=== PATIENT | female | born 1960 | race Caucasian/White ===

== ENCOUNTER 2020-08-24 08:35 | Outpatient (REF) | payer OTHER, SELFPAY ==
[2020-08-24 11:02] LABS: MANUAL DIFF FLAG NO
[2020-08-24 11:09] LABS: Basophils Percent Auto 0.6 % (0-2); Eosinophils Absolute Auto 0.2 X10*3/uL (0.0-0.4); Eosinophils Percent Auto 2.4 % (0-4); Hematocrit 43.2 % (37-47); Hemoglobin 14.3 g/dl (12.0-16.0); Imm Gran Abs Auto 0.02 X10*3/uL (0.00-0.03); Imm Gran Pct Auto 0.3 % (0.0-0.4); Lymphocytes Absolute Auto 1.9 X10*3/uL (1.2-4.9); Lymphocytes Percent Auto 30.4 % (20-40); Mean Corpuscular HGB Conc 33.1 g/dl (31.0-35.0); Mean Corpuscular Hemoglobin 30.6 pg (27.0-33.0); Mean Corpuscular Volume 92.5 fL (80-98); Mean Platelet Volume 10.4 fL (9.4-12.3); Monocytes Absolute Auto 0.4 X10*3/uL (0.1-1.2); Neutrophils Absolute Auto 3.7 X10*3/uL (2.0-8.3); Neutrophils Percent Auto 59.3 % (45-73); Platelet Count 295 X10*3/uL (160-400); Red Blood Count 4.67 X10*6/uL (4.20-5.50); Red Cell Distribution Width 13.2 % (11.0-16.0); White Blood Count 6.2 X10*3/uL (4.8-10.8)
[2020-08-24 11:12] LABS: Glucose Urine UA NEG (NEG); Leukocyte Esterase Urine NEG (NEG); Nitrite Urine NEG (NEG); PH 5.5 (5.0-8.0); Specific Gravity - Urine >= 1.030 (1.005-1.025); Urine Blood NEG (NEG); Urine Ketones NEG (NEG); Urine Protein NEG (NEG-TRACE)
[2020-08-24 11:21] LABS: Appearance Urine TURBID; Color Urine YELLOW
[2020-08-24 11:28] LABS: Alanine Aminotransferase 31 U/L (0-31); Albumin Level 4.3 g/dL (3.5-5.0); Alkaline Phosphatase 102 U/L (39-117); Anion Gap 13 (12-20); Aspartate Amino Transferase 22 U/L (5-31); Bilirubin Total 0.6 mg/dL (0.0-1.0); Blood Urea Nitrogen 14 mg/dL (9-16); Calcium 9.4 mg/dL (8.4-10.2); Carbon Dioxide 28 mmol/L (22-29); Chloride 106 mmol/L (96-108); Cholesterol 240 mg/dL; Estimated Glomerular Filt Rate > 60; Glucose Fasting 88 mg/dL (60-99); HDL Cholesterol 80 mg/dL; LDL Cholesterol Calculated 140 mg/dl; Potassium 4.8 mmol/l (3.3-5.1); Sodium 142 mmol/L (135-145); Total Protein 6.8 g/dL (6.5-8.0); Triglycerides 100 mg/dL
[2020-08-24 11:50] LABS: Thyroid Stimulating Hormone 1.56 mIU/mL (0.32-4.0)
[2020-08-28 14:56] LABS: Vitamin D 25-OH, D2 <4 ng/mL; Vitamin D 25-OH, D3 56 ng/mL; Vitamin D 25-OH, Total 56 ng/mL (30-100)
== END 2020-08-24 08:36 | disposition home or self-care (01) ==
LOC: HO.HMGCLDS 08:35
PROVIDERS: PCP Internal Medicine; Visit Provider Internal Medicine
DX: Z00.00 Encounter for general adult medical examination without abnormal findings (principal); Z13.9 Encounter for screening, unspecified; E78.5 Hyperlipidemia, unspecified
CPT/HCPCS: 36415; 80053; 80061; 81003; 82306; 84443; 85025

== ENCOUNTER 2020-09-16 15:56 | Outpatient (REF) | payer OTHER, SELFPAY | END 2020-09-16 15:57 | disposition home or self-care (01) | LOC: HO.LAB 15:56 | PROVIDERS: Visit Provider Nurse Practitioner Family | DX: Z20.828 Contact with and (suspected) exposure to other viral communicable diseases (principal) | CPT/HCPCS: U0003 ==

== ENCOUNTER 2021-06-25 16:37 | Outpatient (REF) | payer OTHER, SELFPAY | END 2021-06-25 16:38 | disposition home or self-care (01) | LOC: HO.LNP 16:37 | PROVIDERS: Visit Provider Hospitalist | DX: Z20.822 Contact with and (suspected) exposure to COVID-19 (principal) | CPT/HCPCS: U0003; U0005 ==

== ENCOUNTER 2021-08-26 09:17 | Outpatient (REF) | payer OTHER, SELFPAY ==
[2021-08-26 11:32] LABS: Appearance Urine TURBID; Color Urine YELLOW; Glucose Urine UA NEG (NEG); Leukocyte Esterase Urine NEG (NEG); Nitrite Urine NEG (NEG); Specific Gravity - Urine 1.025 (1.005-1.025); Urine Blood NEG (NEG); Urine Ketones NEG (NEG); Urine Protein NEG (NEG-TRACE)
[2021-08-26 11:42] LABS: Hematocrit 42.1 % (37-47); Hemoglobin 13.9 g/dl (12.0-16.0); Mean Corpuscular Hemoglobin 30.2 pg (27.0-33.0); Mean Corpuscular Volume 91.5 fL (80-98); Mean Platelet Volume 10.6 fL (9.4-12.3); Platelet Count 300 X10*3/uL (160-400); Red Cell Distribution Width 13.5 % (11.0-16.0); White Blood Count 5.9 X10*3/uL (4.8-10.8)
[2021-08-26 11:50] LABS: Alanine Aminotransferase 28 U/L (0-31); Alkaline Phosphatase 104 U/L (39-117); Anion Gap 13 (12-20); Aspartate Amino Transferase 23 U/L (5-31); Bilirubin Total 0.6 mg/dL (0.0-1.0); Blood Urea Nitrogen 16 mg/dL (9-16); Calcium 9.2 mg/dL (8.4-10.2); Carbon Dioxide 26 mmol/L (22-29); Chloride 107 mmol/L (96-108); Cholesterol 236 mg/dL; Estimated Glomerular Filt Rate > 60; Glucose Fasting 91 mg/dL (60-99); HDL Cholesterol 76 mg/dL; LDL Cholesterol Calculated 150 mg/dl; Potassium 4.6 mmol/L (3.3-5.1); Sodium 141 mmol/L (135-145); Total Protein 6.6 g/dL (6.5-8.0); Triglycerides 50 mg/dL
== END 2021-08-26 09:18 | disposition home or self-care (01) ==
LOC: HO.HMGCLDS 09:17
PROVIDERS: PCP Internal Medicine; Visit Provider Internal Medicine
DX: Z00.00 Encounter for general adult medical examination without abnormal findings (principal); E78.5 Hyperlipidemia, unspecified; R30.0 Dysuria
CPT/HCPCS: 36415; 80053; 80061; 81003; 84443; 85027

== ENCOUNTER 2022-08-29 09:04 | Outpatient (REF) | payer OTHER, SELFPAY ==
[2022-08-29 11:26] LABS: Appearance Urine Clear; Color Urine Yellow; Glucose Urine UA Negative (Negative); Leukocyte Esterase Urine Trace (Negative); Nitrite Urine Negative (Negative); PH 5.5 (5.0-9.0); Specific Gravity - Urine <= 1.005 (1.005-1.025); UMIC TRIGGER UACC YES; Urine Blood Negative (Negative); Urine Ketones Negative (Negative); Urine Protein Negative (Neg-Trace)
[2022-08-29 11:36] LABS: Bacteria Urine None Seen (None Seen); Hyaline Casts Urine 0-2 /LPF (0-2); Squamous Epithelial Cell Urine 0-2 /HPF (0-2); WBC Urine 0-5 /HPF (0-5)
[2022-08-29 12:23] LABS: Cholesterol 228 mg/dL; HDL Cholesterol 68 mg/dL; LDL Cholesterol Calculated 142 mg/dl; Triglycerides 92 mg/dL
[2022-08-29 12:29] LABS: Vitamin D 25-OH Total 76.3 ng/mL (>30)
== END 2022-08-29 09:05 | disposition home or self-care (01) ==
LOC: HO.HMGCLDS 09:04
PROVIDERS: PCP Internal Medicine; Visit Provider Internal Medicine
DX: Z00.00 Encounter for general adult medical examination without abnormal findings (principal); E78.5 Hyperlipidemia, unspecified; E55.9 Vitamin D deficiency, unspecified
CPT/HCPCS: 36415; 80061; 81001; 82306

== ENCOUNTER 2022-09-02 13:38 | Outpatient (REF) | payer OTHER, SELFPAY ==
--- NOTE | ~2022-09-02 | XR_ITS ---
EXAMINATION: XR KNEE AP STANDING CLINICAL INFORMATION: Pain COMPARISON: 11/27/2017 TECHNIQUE: AP bilateral standing view of the knees was obtained. FINDINGS: Right knee: Narrowing of the lateral compartment with osteophytosis. Left knee: Osteophytosis of the lateral compartment. Joint spaces are preserved. XR/XR knee standing BI IMPRESSION: Osteoarthritis of the bilateral knees, right greater than left.
== END 2022-09-02 13:39 | disposition home or self-care (01) ==
LOC: HO.HMGCX 13:38
PROVIDERS: PCP Internal Medicine; Visit Provider Internal Medicine
DX: M25.561 Pain in right knee (principal); M25.562 Pain in left knee
CPT/HCPCS: 73565

== ENCOUNTER → 2022-09-15 11:21 | Outpatient (BNVA) | payer OTHER, SELFPAY | PROVIDERS: PCP Internal Medicine; Visit Provider Orthopaedic Surgery | DX: M17.0 Bilateral primary osteoarthritis of knee (principal); M21.061 Valgus deformity, not elsewhere classified, right knee | CPT/HCPCS: 20610; 99202; J1100 ==

== ENCOUNTER 2022-10-31 08:47 | Outpatient (REF) | payer OTHER, SELFPAY ==
[2022-10-31 13:11] LABS: Cholesterol 243 mg/dL; HDL Cholesterol 72 mg/dL; LDL Cholesterol Calculated 144 mg/dl; Triglycerides 137 mg/dL; Vitamin D 25-OH Total 59.6 ng/mL (>30)
== END 2022-10-31 08:48 | disposition home or self-care (01) ==
LOC: HO.HMGCLDS 08:47
PROVIDERS: PCP Internal Medicine; Visit Provider Internal Medicine
DX: M81.0 Age-related osteoporosis without current pathological fracture (principal); E55.9 Vitamin D deficiency, unspecified
CPT/HCPCS: 36415; 80061; 82306

== ENCOUNTER 2022-11-23 13:00 | Outpatient (RCR) | payer OTHER, SELFPAY ==
--- NOTE | 2022-09-29 14:13 | MHC.PT.EP ---
[facility] [place] Office [place] Office [place] Office [address] Steve Louis [address] [phone] F: [phone] F: [phone] F: [phone] F: [phone] Physical Therapy Plan of Care Date of Evaluation: Date of Surgery: Diagnosis: Bilateral OA of knees, valgus deformity of R knee Assessment: Patient is pleasant 61 y.o. female referred to PT by Dr. Marko Blanco MD with Dx of bilateral OA of knees, R knee valgus deformity. She presents with PT Dx consistent with OA with current impairments include pain, limited ROM, weakness, antalgic gait, difficulty with balance. Her functional limitations include walking long distances, standing prolonged periods of time, reciprocal stair use, squat/bend low surfaces. Skilled PT with address impairments and functional limitations in order to achieve goals. Frequency and Duration: The patient will be seen 2x/week for 4 weeks Short Term Goals: 2 weeks Patient presents with R knee extension AROM -5 degrees to improve gait pattern. Patient demonstrates consistency and independence with HEP to self manage chronic R knee OA sxs. Residential Goals: 4 weeks Patient presents with increased R knee flexion AROM 115 degrees to sit to low surfaces. Patient presents with increased R knee flexion strength 4+/5 to be able to perform reciprocal stairs to basement. Treatment Plan: Modalities to reduce pain, spasms and effusion. Manual therapy to restore motion and function. Therapeutic exercise to improve strength and flexibility. Neuromuscular re-education for posture and balance. Therapeutic activities to return to functional activities of daily living. Electronically signed by: Monique Whitmore, PT, DPT Please sign and return to therapist. Thank you for your referral.
--- NOTE | 2022-11-23 14:19 | MHC.PT.DC ---
[facility] [place] Office [place] Office [place] Office [address] 140 [facility] [phone] F: [phone] F: [phone] F: [phone] F: [phone] Physical Therapy Discharge Report Diagnosis: Bilateral OA of knees, valgus deformity of R knee Date of Surgery: Date of Evaluation: 09/29/22 Date of Discharge: 11/23/22 Treatments to Date: 10 Cancellations to Date: No Shows to Date: Discharge Status: Improved Function Independent with HEP Discharge Summary: Fawn has been an active participant in her therapy in and out of the clinic she is improved of her pain and function however pain and compensation persists with squatting activities and negotiating stairs and curbs. LEFI outcome measure improved from 19/80 to 33/80. PT and Pt are in agreement with as she is I with her home program and is motivated to continue. Electronically signed by: Ravi Mcclure PT. Please sign and return to therapist. Thank you for your referral.
== END 2022-11-23 14:17 | disposition home or self-care (01) ==
LOC: HO.PTCHIC 13:00
PROVIDERS: PCP Internal Medicine; Visit Provider Orthopaedic Surgery
DX: M17.0 Bilateral primary osteoarthritis of knee (principal); M21.061 Valgus deformity, not elsewhere classified, right knee
CPT/HCPCS: 97110; 97140; 97161

== ENCOUNTER 2023-08-29 08:56 | Outpatient (REF) | payer OTHER, SELFPAY ==
[2023-08-29 11:39] LABS: MANUAL DIFF FLAG NO
[2023-08-29 11:52] LABS: Basophils Absolute Auto 0.1 X10*3/uL (0.0-0.2); Basophils Percent Auto 0.9 % (0-2); Eosinophils Absolute Auto 0.4 X10*3/uL (0.0-0.4); Eosinophils Percent Auto 6.7 % (0-4); Hematocrit 43.8 % (37.0-47.0); Hemoglobin 14.4 g/dl (12.0-16.0); Imm Gran Abs Auto 0.01 X10*3/uL (0.00-0.03); Imm Gran Pct Auto 0.2 % (0.0-0.4); Lymphocytes Absolute Auto 1.9 X10*3/uL (1.2-4.9); Lymphocytes Percent Auto 32.2 % (20-40); Mean Corpuscular HGB Conc 32.9 g/dl (31.0-35.0); Mean Corpuscular Hemoglobin 30.5 pg (27.0-33.0); Mean Corpuscular Volume 92.8 fL (80.0-98.0); Mean Platelet Volume 10.6 fL (9.4-12.3); Monocytes Absolute Auto 0.4 X10*3/uL (0.1-1.2); Monocytes Percent Auto 7.4 % (2-11); Neutrophils Percent Auto 52.6 % (45-73); Platelet Count 327 X10*3/uL (160-400); Red Blood Count 4.72 X10*6/uL (4.20-5.50); Red Cell Distribution Width 13.5 % (11.0-16.0); White Blood Count 5.8 X10*3/uL (4.8-10.8)
[2023-08-29 12:05] LABS: Appearance Urine Clear; Color Urine Yellow; Glucose Urine UA Negative (Negative); Leukocyte Esterase Urine Trace (Negative); Nitrite Urine Negative (Negative); UMIC TRIGGER UACC YES; Urine Blood Negative (Negative); Urine Ketones Negative (Negative); Urine Protein Negative (Neg-Trace)
[2023-08-29 12:10] LABS: Bacteria Urine None Seen (None Seen); Hyaline Casts Urine 0-2 /LPF (0-2); RBC Urine 0-2 /HPF (0-2); Squamous Epithelial Cell Urine 0-2 /HPF (0-2); WBC Urine 0-5 /HPF (0-5)
[2023-08-29 12:29] LABS: Alanine Aminotransferase 23 U/L (0-31); Albumin Level 4.1 g/dL (3.5-5.0); Alkaline Phosphatase 107 U/L (39-117); Anion Gap 14 (12-20); Aspartate Amino Transferase 19 U/L (5-31); Bilirubin Total 0.6 mg/dL (0.0-1.0); Blood Urea Nitrogen 16 mg/dL (9-16); Calcium 9.8 mg/dL (8.4-10.2); Carbon Dioxide 27 mmol/L (22-29); Chloride 106 mmol/L (96-108); Cholesterol 251 mg/dL (<200); Estimated Glomerular Filt Rate > 60; Glucose Fasting 81 mg/dL (60-99); HDL Cholesterol 77 mg/dL (>40); LDL Cholesterol Calculated 154 mg/dL (<100); Potassium 4.6 mmol/L (3.3-5.1); Sodium 142 mmol/L (135-145); TSH reflex Free T4 1.81 uIU/mL (0.32-4.0); Total Protein 7.3 g/dL (6.5-8.0); Triglycerides 103 mg/dL (<150); Vitamin D 25-OH Total 82.5 ng/mL (>30)
== END 2023-08-29 08:57 | disposition home or self-care (01) ==
LOC: HO.HMGCLDS 08:56
PROVIDERS: PCP Internal Medicine; Visit Provider Internal Medicine
DX: Z00.00 Encounter for general adult medical examination without abnormal findings (principal); E55.9 Vitamin D deficiency, unspecified; M81.0 Age-related osteoporosis without current pathological fracture; E78.5 Hyperlipidemia, unspecified
CPT/HCPCS: 36415; 80053; 80061; 81001; 81003; 82306; 84443; 85025

== ENCOUNTER 2023-09-04 08:25 | Outpatient (AMB) | payer OTHER, SELFPAY ==
[2023-09-04 08:37] VITALS: BP 128/80; PULSE 69; O2SAT 98; BMI 39.5
--- NOTE | 2023-09-04 08:37 | MHC.PC.OV ---
Vital Signs 09/04/23 08:37 Height 5 ft 4 in Weight 230 lb BMI 39.5 BP 128/80 Blood Pressure Location Lt brachial Position Sitting Pulse 69 Pulse Source Pulse Oximeter Pulse Oximetry (%) 98 Oxygen Delivery Method Room Air Intake Visit Reasons: Annual PE Intake Note: Pt is here today for PE. Pt states that she has been having some redness, blister on her toes in her L foot. Allergies No Known Allergies [No Known Allergies*] Allergy (Verified 09/04/23 08:41) Medication List - Last Reconciled 09/04/23 by Amparo Rivera MD ascorbic acid (vitamin C) 1 g PO Q6H mv,Ca,min-folic acid-vit K1 400-20 mcg (One-A-Day Women's 50 Plus) 1 tab PO DAILY naproxen sodium (Aleve) 220 mg PO Q12H PRN omega 8-nup-ccl-fish oil 1,000 mg (120 mg-180 mg) (Fish Oil) 1 cap PO DAILY valacyclovir 1,000 mg PO BID Tobacco use date assessed: 09/04/23 Dental Screening Dental Screen Date: 09/04/23 Did you have a dental visit in the last 12 months?: Yes Did you have a dental problem in the last 6 months where you did not have access to dental care?: No Was dental information given to patient?: Patient has dentist HPI Annual PE HPI Details Pt presents for PE. She complains of left middle toe all open sore for 1 week. She has been using Neosporin but developed an itchy rash. Patient denies fever chills. Patient complains of chronic right knee pain due to advanced osteoarthritis. She had a cortisone injection last year which was helpful. Patient is concerned about her weight gain. She has been eating sweets when upset. Patient tried different weight loss programs in the past and was able to lose up to 50 lb. 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 1. Little interest or pleasure in doing things: several days 2. Feeling down, depressed, or hopeless: several days 3. Trouble falling or staying asleep, or sleeping too much: not at all 4. Feeling tired or having little energy: several days 5. Poor appetite or overeating: several days 6. Feeling bad about yourself - or that you are a failure or have let yourself or your family down: not at all 7. Trouble concentrating on things, such as reading the newspaper or watching television: not at all 8. Moving or speaking so slowly that other people could have noticed. Or the opposite - being so fidgety or restless that you have been moving around a lot more than usual: not at all 9. Thoughts that you would be better off or of hurting yourself in some way: not at all Total score: 4 Depression Screening Interpretation: Negative Depression Screening Done: Yes Source: Developed by Drs. Car Emmanuel, Debbie Mcadams, Darshan Brown and colleagues, with an educational issa from [employer]. Thrive Questionnaire Date Thrive assessed: 09/04/23 I am a: Patient What is your living situation today?: I have a steady place to live Within the past 12 months, did the food you bought not last and you didn't have the money to get more?: Never true Within the past 12 months, did you worry whether your food would run out before you got money to buy more?: Never true Do you have trouble paying for medicines?: No Do you have trouble getting transportation to medical appointments?: No Do you have trouble paying your heating and electricity bill?: No Do you have trouble taking care of your child, family member or friend?: No Do you have trouble with day-to-day activities such as bathing, preparing meals, shopping, managing finances, etc.?: No Are you currently unemployed and looking for a job?: No Are you interested in more education?: No Please select the resources that you would like help with: None AUDIT C Alcohol Use Questionnaire (AUDIT-C) 1. How often do you have a drink containing alcohol?: Monthly or less 2. How many drinks containing alcohol do you have on a typical day when you are drinking?: 1 or 2 3. How often do you have six or more drinks on one occasion?: Never Total Score: 1 HAZEL-7 AMB Questionnaire HAZEL-7 Date HAZEL - 7 assessed: 09/04/23 Feeling nervous, anxious, or on edge: 0 = Not at all Not being able to stop or control worryin = Not at all Worrying too much about different things: 0 = Not at all Trouble relaxin = Not at all Being so restless that it is hard to sit still: 0 = Not at all Becoming easily annoyed or irritable: 0 = Not at all Feeling afraid as if something awful might happen: 0 = Not at all Total HAZEL-7 score (0-4 normal; 5-9 mild; 10-14 moderate; 15-21 severe): 0 Source: Developed by Drs. Car Emmanuel, Debbie Mcadams, Darshan Brown and colleagues, with an educational issa from [employer]. Review of Systems Const All systems reviewed & are unremarkable except as noted in HPI and below Reports no additional complaints Eyes Reports no additional complaints ENT Reports no additional complaints Card Reports no additional complaints Resp Reports no additional complaints GI Reports no additional complaints Reports no additional complaints Physical exam (Primary Care) Vital Signs: Last Vital Signs Pulse 69 09/04/23 08:37 BP 128/80 09/04/23 08:37 Pulse Ox 98 09/04/23 08:37 Oxygen Delivery Method Room Air 09/04/23 08:37 BMI result Body Mass Index 39.5 Tobacco/Smoking Status: Tobacco use Status Tobacco use date assessed 09/04/23 09/04/23 08:38 Patient Tobacco Use Status Never used Tobacco 09/04/23 08:38 e-Cigarette/Vaping Use Never Used 09/04/23 08:38 Depression Screening Interpretation: Negative Thrive Assessment: Date of Thrive Assessment Date Thrive assessed 09/02/22 09/04/23 08:38 Const General: no acute distress HENMT Head: Yes normal to inspection Ears: hearing grossly normal bilaterally Face and sinus: Yes normal facial exam Throat: Yes posterior oropharynx normal Eyes General: appearance normal, both eyes and all related structures Neck Neck: Yes no lymphadenopathy and Yes supple Resp Effort & Inspection: normal respiratory effort Auscultation: clear to auscultation bilaterally Cardio Rhythm: regular rhythm Heart sounds: S1 normal heart sound present and S2 normal heart sound present GI Inspection: Yes normal to inspection Percussion: Yes normal to percussion Auscultation: normal bowel sounds Extrem Other: There is a decreased range of motion right knee and arthritic deformity, 3rd L toe ulcer with yellow vesicle, surrounding erythema and swelling Assessment and Plan Assessment & Plan (1) Knee pain, right: Code(s): M25.561 - Pain in right knee Plan: Referred to physical therapy and follow-up with orthopedic surgeon (2) Overweight: Code(s): E66.3 - Overweight Plan: Increasing physical activity decrease in caloric intake discussed with the patient. (3) Annual physical exam: Code(s): Z00.00 - Encounter for general adult medical examination without abnormal findings Plan: Well-balanced diet regular exercise weight loss discussed with the patient. She is up-to-date with the mammogram Pap smear and colonoscopy (4) Hyperlipidemia: Code(s): E78.5 - Hyperlipidemia, unspecified Plan: Low-cholesterol diet increase physical activity weight loss discussed with the patient . follow-up in 6 months with a fasting labs before (5) Toe ulcer: Code(s): L97.509 - Non-pressure chronic ulcer of other part of unspecified foot with unspecified severity Plan: For infected toe ulcer and possible allergic reaction to Neosporin prednisone taper and Augmentin are prescribed. Patient will follow-up as needed Orders: Orders Comprehensive [place]. Panel Fast 6 Months E78.5 - Hyperlipidemia, unspecified, Z00.00 - Encounter for general adult medical examination without abnormal findings Lipid Panel 6 Months E78.5 - Hyperlipidemia, unspecified, Z00.00 - Encounter for general adult medical examination without abnormal findings PT Evaluation and Treatment Today M25.561 - Pain in right knee Medications: New amoxicillin-pot clavulanate 875-125 mg 1 tab PO BID 20 tabs 0RF prednisone 4 TABL qd x 3 days, then 3 tabl qd x3, then 2 tabl x 3 days, then 1 tabl x days 10 mg PO DAILY 30 tabs 0RF Refilled valacyclovir 1,000 mg PO BID 60 tabs 1RF Coding Level of Care Code Est Pt Prev Care 40-64y(37602) Diagnoses Knee pain, right M25.561 Overweight E66.3 Annual physical exam Z00.00 Hyperlipidemia E78.5 Toe ulcer L97.509
== END 2023-09-04 09:28 | disposition home or self-care (01) ==
PROVIDERS: Visit Provider Internal Medicine
DX: Z00.00 Encounter for general adult medical examination without abnormal findings (principal); L97.509 Non-pressure chronic ulcer of other part of unspecified foot with unspecified severity; M25.561 Pain in right knee; E66.3 Overweight; E78.5 Hyperlipidemia, unspecified; Z68.39 Body mass index [BMI] 39.0-39.9, adult; E55.9 Vitamin D deficiency, unspecified
CPT/HCPCS: 99396

== ENCOUNTER 2023-12-19 20:10 | Emergency (ER) | payer OTHER, SELFPAY ==
--- NOTE | ~2023-12-19 | CT_ITS ---
EXAMINATION: CT HEAD WITHOUT CONTRAST CT CERVICAL SPINE WITHOUT CONTRAST CT MAXILLOFACIAL WITHOUT CONTRAST CLINICAL INFORMATION: Fall with loss of consciousness. Contusion/hematoma over right eye. COMPARISON: None. TECHNIQUE: Multidetector volumetric imaging of the head was performed without the administration of intravenous contrast. Images were also obtained with through the cervical spine as well as the facial bones from the frontal sinuses through the mandible. Multiplanar reconstructed images in coronal and sagittal orientations were submitted. This CT examination was performed using dose optimization techniques as appropriate, variously including the following: *Automated exposure control *Adjustment of mA and/or kV according to patient size (this includes techniques or standardized protocols for targeted exams where dose is matched to indication/reason for exam; i.e. extremities or head) *Use of iterative reconstruction technique DOSE: 1432 mGy-cm FINDINGS: HEAD: There is no evidence of acute intracranial hemorrhage or territorial infarction. No abnormal mass-effect or midline shift. No extra-axial fluid collections. Lares to white matter differentiation is well preserved. The ventricles are normal in size and configuration. There is no abnormal attenuation within the brain parenchyma. Calcific atherosclerosis is present within the cavernous segments of the internal carotid arteries. Right periorbital hematoma over the superior and lateral orbital rim. Soft tissues otherwise unremarkable. The calvarium is intact. Hyperostosis frontalis interna. The sinuses and mastoid air cells are clear. MAXILLOFACIAL: The right periorbital hematoma over the superior and lateral orbital rim measures 1.1 cm in thickness . No post septal involvement. Globes are symmetric and unremarkable. No retrobulbar abnormalities. Intraconal and skull fat is normal. Extraocular muscles are unremarkable. The mandible, maxilla, pterygoid plates, nasal bones, zygomatic arches, paranasal sinus gibson, and bony orbits are intact. No acute osseous abnormality within the maxillofacial region. The paranasal sinuses and mastoid air cells remain well-aerated. No significant soft tissue findings. Nasopharynx, oropharynx, and hypopharynx are unremarkable. CERVICAL SPINE: Vertebral body heights are normal. No fractures of the vertebral bodies or posterior elements. Mild straightening of the normal cervical lordosis. No subluxation. Degenerative osteophytes and sclerosis are present at the atlantodental articulation, though normal alignment is maintained. Craniocervical junction is normal. There is moderate degenerative disc disease at C5-C6 with loss of intervertebral disc height, endplate osteophytes, and uncovertebral osteophytes. Minimal degenerative disc disease at the levels. Minimal facet arthropathy at C7-T1. No significant central canal stenoses. There is bilateral neural foraminal encroachment at C5-C6 due to uncovertebral osteophytes. No significant paravertebral soft tissue swelling. Cervical soft tissues are unremarkable. Imaged portions of the lung apices are clear. CT/CT cervical spine wo IV con IMPRESSION: 1. No acute intracranial pathology. 2. Right periorbital hematoma. No acute facial fractures. 3. No acute fracture or malalignment in the cervical spine. Moderate degenerative disc disease at C5-C6.
[2023-12-19 20:37] VITALS: BP 121/84; PULSE 89; O2SAT 96
[2023-12-19 20:40] VITALS: BP 143/80; PULSE 112; O2SAT 96
[2023-12-19 20:43] VITALS: BMI 37.8
[2023-12-19 22:16] LABS: MANUAL DIFF FLAG NO
[2023-12-19 22:18] LABS: Basophils Percent Auto 0.5 % (0-2); Eosinophils Percent Auto 0.6 % (0-4); Hematocrit 44.8 % (37.0-47.0); Hemoglobin 15.5 g/dl (12.0-16.0); Imm Gran Abs Auto 0.01 X10*3/uL (0.00-0.03); Imm Gran Pct Auto 0.2 % (0.0-0.4); Lymphocytes Absolute Auto 2.3 X10*3/uL (1.2-4.9); Lymphocytes Percent Auto 34.9 % (20-40); Mean Corpuscular HGB Conc 34.6 g/dl (31.0-35.0); Mean Corpuscular Hemoglobin 31.4 pg (27.0-33.0); Mean Corpuscular Volume 90.7 fL (80.0-98.0); Mean Platelet Volume 10.4 fL (9.4-12.3); Monocytes Absolute Auto 0.3 X10*3/uL (0.1-1.2); Monocytes Percent Auto 4.7 % (2-11); Neutrophils Absolute Auto 3.9 x10*3/uL (2.0-8.3); Neutrophils Percent Auto 59.1 % (45-73); Platelet Count 297 X10*3/uL (160-400); Red Blood Count 4.94 X10*6/uL (4.20-5.50); Red Cell Distribution Width 13.1 % (11.0-16.0); White Blood Count 6.6 X10*3/uL (4.8-10.8)
[2023-12-19 22:23] LABS: Prothrombin Time 11.7 SEC (11.1-13.3)
--- NOTE | 2023-12-19 22:33 | ED.FALL ---
HPI - Fall General Chief Complaint: Fall Stated Complaint: Fall/Face lac Time Seen by Provider: 12/19/23 20:37 Source: patient Mode of arrival: EMS History of Present Illness HPI Narrative: This is a 63-year-old female who is brought in by EMS after she slipped and fell on the ice but endorses that she was intoxicated as today is her birthday. Patient states that she struck the side of her face and suspects that she lost consciousness. Patient attempted to call her next-door neighbor's but was unsuccessful and so called 911. EMS states that she refused C-collar. Related Data Home Medications Medication Instructions Recorded Confirmed ascorbic acid (vitamin C) 1,000 mg 1 g PO Q6H 08/31/20 09/04/23 tablet omega 8-ojb-gak-fish oil 1,000 mg 1 cap PO DAILY 08/31/20 09/04/23 (120 mg-180 mg) capsule (Fish Oil) ubedeupwbhkz-lafsfkwz-srnfqrh-folic 1 tab PO DAILY 06/25/21 09/04/23 acid 400 mcg-vit K1 20 mcg tablet (One-A-Day Women's 50 Plus) naproxen sodium 220 mg capsule 220 mg PO Q12H PRN 09/15/22 09/04/23 (Aleve) Previous Rx's Medication Instructions Recorded amoxicillin 875 mg-potassium 1 tab PO BID #20 tabs 09/04/23 clavulanate 125 mg tablet prednisone 10 mg tablet 10 mg PO DAILY #30 tabs 09/04/23 valacyclovir 1 gram tablet 1,000 mg PO BID #60 tabs 09/04/23 Allergies Allergy/AdvReac Type Severity Reaction Status Date / Time No Known Allergies Allergy Verified 09/04/23 08:41 [No Known Allergies*] Review of Systems Review of Systems: Pertinent positives and negatives as stated in the HPI [facility] Past Medical History Source: nursing notes reviewed Medical History Vitamin D deficiency Osteoporosis Overweight Normal Pap smear Hyperlipidemia History of mammogram Endometriosis Low back pain Annual physical exam Surgical History H/O colonoscopy No pertinent past surgical history Family History Family History Father Diabetes mellitus Stomach cancer Mother Diabetes mellitus Alzheimer's disease Breast cancer Social History Social History Housing: House Patient Tobacco Use Status: Never used Tobacco e-Cigarette/Vaping Use: Never Used Advance Directives: No Advance Directives Information Provided: No Current occupational status: employed 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 GENERAL: Well developed, well nourished, in no acute distress. HEAD: Normocephalic/abrasions noted to right maxillary into zygomatic arch EYES: PERRLA, EOMI, right periorbital hematoma EARS: Ext canals without abnormality, TMs non-bulging and non-erythematous NOSE: Nares patent bilateral OROPHARYNX: no oral lesions noted, posterior pharynx clear and non-erythematous without noted tonsillar enlargement/erythema/exudates NECK: Supple, no adenopathy LUNGS: Normal breath sounds. No adventitious sounds or accessory muscle use. SpO2<96> CARDIOVASCULAR: Regular rate and rhythm without noted murmurs ABDOMEN: Soft, non-tender, non-distended with bowel sounds. MUSCULOSKELETAL: No tenderness, deformities, or effusions noted on gross inspection. EXTREMITIES: No cyanosis, clubbing or edema. SKIN: Inspection of the skin reveals no rashes NEUROLOGIC: Alert and oriented x 4. Strength and sensation to light touch were grossly intact x 4. Medications Administered Discontinued Medications Generic Name Dose Route Start Last Admin Trade Name Freq PRN Reason Stop Dose Admin Acetaminophen 975 mg 12/19/23 22:36 12/19/23 22:59 Acetaminophen 325 Mg Tablet PO 12/19/23 22:37 975 mg ONCE ONE Administration Diphtheria/Tetanus/Acell Pertussis 0.5 ml 12/19/23 22:35 12/19/23 22:59 Diphth,Pertus(Acell),Tet Adult 0.5 Ml Syringe IM 12/19/23 22:36 0.5 ml .ONCE ONE Administration Ibuprofen 400 mg 12/19/23 22:36 12/19/23 22:58 Ibuprofen 400 Mg Tablet PO 12/19/23 22:37 400 mg ONCE ONE Administration Medical Decision Making Medical Decision Making [facility] Narrative: 63-year-old female with history and clinical presentation, DDX: Intracranial hemorrhage/cervical spine injury, possible facial fracture I reviewed all investigations and hematologic indices are negative for leukocytosis/left shift/anemia/thrombocytopenia. Coagulation studies are within normal limits. Chemistry indices are grossly within normal limits and there are no noted derangements. CT of the head negative for intracranial hemorrhage or mass effect and otherwise my interpretation is in agreement with radiology's impression. Cervical spine without evidence of fracture or subluxation. And facial CT not significant for any fractures but does identify periorbital hematoma that does not involve post septal. Patient provided with combination analgesics and Tdap If patient has a safe ride home she can be discharged. Instructions are to follow-up with her primary care doctor in the next 1-2 days. She was provided with strict return precautions. Differential Diagnosis Differential Diagnoses: The differential diagnosis associated with the presentation includes Please see the discussion above Admission/Observation Consideration of admission/observation: Escalation of care including admission/observation considered Please see the discussion above Lab Data [facility] Lab Attestation statement: I reviewed the patient's lab results. Please see the discussion above 12/19/23 21:56 12/19/23 21:56 Labs: Lab Results 12/19/23 Range/Units 21:56 WBC 6.6 (4.8-10.8) X10*3/uL RBC 4.94 (4.20-5.50) X10*6/uL Hgb 15.5 (12.0-16.0) g/dl Hct 44.8 (37.0-47.0) % MCV 90.7 (80.0-98.0) fL MCH 31.4 (27.0-33.0) pg MCHC 34.6 (31.0-35.0) g/dl RDW 13.1 (11.0-16.0) % Plt Count 297 (160-400) X10*3/uL MPV 10.4 (9.4-12.3) fL Immature Gran % (Auto) 0.2 (0.0-0.4) % Neut % (Auto) 59.1 (45-73) % Lymph % (Auto) 34.9 (20-40) % [place] % (Auto) 4.7 (2-11) % Eos % (Auto) 0.6 (0-4) % Baso % (Auto) 0.5 (0-2) % Lymph # (Auto) 2.3 (1.2-4.9) X10*3/uL [place] # (Auto) 0.3 (0.1-1.2) X10*3/uL Eos # (Auto) 0.0 (0.0-0.4) X10*3/uL Baso # (Auto) 0.0 (0.0-0.2) X10*3/uL Abs Immat Gran (auto) 0.01 (0.00-0.03) X10*3/uL Absolute Neuts (auto) 3.9 (2.0-8.3) x10*3/uL Absolute Nucleated RBC 0.000 (0.0-0.012) X10*3/uL Nucleated RBC % (auto) 0.0 (0.0-0.2) /100WBC PT 11.7 (11.1-13.3) SEC INR 1.0 (0.9-1.1) Sodium 143 (135-145) mmol/L Potassium 3.9 (3.3-5.1) mmol/L Chloride 107 (96-108) mmol/L Carbon Dioxide 23 (22-29) mmol/L Anion Gap 17 (12-20) BUN 13 (9-16) mg/dL Creatinine 0.74 (0.5-1.4) mg/dL Estim Creat Clear Calc 88.1 Estimated GFR > 60 Random Glucose 108 (60-115) mg/dL Calcium 9.9 (8.4-10.2) mg/dL Total Bilirubin 0.2 (0.0-1.0) mg/dL AST 29 (5-31) U/L ALT 25 (0-31) U/L Alkaline Phosphatase 111 (39-117) U/L Total Protein 8.0 (6.5-8.0) g/dL Albumin 4.6 (3.5-5.0) g/dL Radiology Impression Discussion of test interpretation with radiology: I have reviewed the radiologist's reading. Radiologist Impression: Please see the discussion above External Record Review External record reviewed: Outpatient record and Prior outpatient labs Critical Care Time Critical Care Time Critical Care Time: Yes Total Critical Care Time: 45 Attestation: I personally attest to this time spent taking care of the patient. Discharge Plan Discharge Clinical Impression: Alcohol intoxication, Periorbital contusion of right eye, Fall, Brief loss of consciousness Patient Disposition: Still a Patient Instructions: Black Eye (ED), Alcohol Intoxication (ED), Contusion in Adults (ED), Fall Prevention (ED) Additional Instructions: 1. Recommend dqha-dje-vgfmmtm Tylenol/ibuprofen as needed for pain control. Also recommend applying ice to unexposed skin for approximately 5 minutes to the contusion over your right eye. Also recommend application of gwrj-zxw-qztcpll antibiotic ointment and gently cleanse the area with soap and water. 2. Please follow-up with your primary care doctor over the next 1-2 days. Prescriptions: No Action One-A-Day Women's 50 Plus 400-20 mcg tablet 1 tab PO DAILY ascorbic acid (vitamin C) 1,000 mg tablet 1 g PO Q6H omega 6-ksq-uhr-fish oil [Fish Oil] 1,000 mg (120 mg-180 mg) capsule 1 cap PO DAILY valacyclovir 1 gram tablet 1,000 mg PO BID Qty: 60 1RF amoxicillin-pot clavulanate 875-125 mg tablet 1 tab PO BID Qty: 20 0RF prednisone 10 mg tablet 10 mg PO DAILY Qty: 30 0RF Rx Instructions: 4 TABL qd x 3 days, then 3 tabl qd x3, then 2 tabl x 3 days, then 1 tabl x days naproxen sodium [Aleve] 220 mg capsule 220 mg PO Q12H PRN Referrals: Amparo Rivera MD [Primary Care Provider] -
[2023-12-19 22:38] LABS: Alanine Aminotransferase 25 U/L (0-31); Albumin Level 4.6 g/dL (3.5-5.0); Alkaline Phosphatase 111 U/L (39-117); Anion Gap 17 (12-20); Aspartate Amino Transferase 29 U/L (5-31); Bilirubin Total 0.2 mg/dL (0.0-1.0); Blood Urea Nitrogen 13 mg/dL (9-16); Calcium 9.9 mg/dL (8.4-10.2); Carbon Dioxide 23 mmol/L (22-29); Chloride 107 mmol/L (96-108); Creatinine Clr Calc Pharmacy 88.1; Estimated Glomerular Filt Rate > 60; Glucose Random 108 mg/dL (60-115); Potassium 3.9 mmol/L (3.3-5.1); Sodium 143 mmol/L (135-145)
[2023-12-19] MEDS: Ibuprofen 400 MG TABLET PO (22:58)
[2023-12-19] MEDS: Diphth,Pertus(ACell),Tet Adult 0.5 ML SYRINGE IM (22:59)
[2023-12-19] MEDS: Acetaminophen 325 MG TABLET 975 MG PO (22:59)
== END 2023-12-19 23:31 | disposition home or self-care (01) ==
PROVIDERS: Emergency Provider Student in an Organized Health Care Education/Training Program; PCP Internal Medicine
DX: F10.129 Alcohol abuse with intoxication, unspecified (principal); S00.11XA Contusion of right eyelid and periocular area, initial encounter; W00.0XXA Fall on same level due to ice and snow, initial encounter; Y93.9 Activity, unspecified; Y92.9 Unspecified place or not applicable; Y99.9 Unspecified external cause status; R55 Syncope and collapse
CPT/HCPCS: 36415; 70450; 70486; 72125; 80053; 85025; 85610; 90471; 90715; 99284

== ENCOUNTER 2024-03-06 07:48 | Outpatient (REF) | payer OTHER, SELFPAY ==
[2024-03-06 10:58] LABS: Alanine Aminotransferase 18 U/L (0-31); Alkaline Phosphatase 80 U/L (39-117); Anion Gap 13 (12-20); Aspartate Amino Transferase 18 U/L (5-31); Bilirubin Total 0.6 mg/dL (0.0-1.0); Blood Urea Nitrogen 17 mg/dL (9-16); Calcium 9.4 mg/dL (8.4-10.2); Carbon Dioxide 27 mmol/L (22-29); Chloride 107 mmol/L (96-108); Cholesterol 227 mg/dL (<200); Estimated Glomerular Filt Rate > 60; Glucose Fasting 104 mg/dL (60-99); HDL Cholesterol 85 mg/dL (>40); LDL Cholesterol Calculated 125 mg/dL (<100); Potassium 3.8 mmol/L (3.3-5.1); Sodium 143 mmol/L (135-145); Total Protein 6.9 g/dL (6.5-8.0); Triglycerides 87 mg/dL (<150)
== END 2024-03-06 07:49 | disposition home or self-care (01) ==
LOC: HO.HMGCLDS 07:48
PROVIDERS: PCP Internal Medicine; Visit Provider Internal Medicine
DX: Z00.00 Encounter for general adult medical examination without abnormal findings (principal); E78.5 Hyperlipidemia, unspecified
CPT/HCPCS: 36415; 80053; 80061

== ENCOUNTER 2024-03-11 09:43 | Outpatient (AMB) | payer OTHER, SELFPAY ==
[2024-03-11 09:49] VITALS: BP 128/84; PULSE 94; O2SAT 98; BMI 39.7
--- NOTE | 2024-03-11 09:49 | A.OFFPC_ITS ---
Vital Signs 03/11/24 09:49 Height 5 ft 4 in Weight 231 lb 4 oz BMI 39.7 BP 128/84 Blood Pressure Location Lt brachial Position Sitting Pulse 94 Pulse Source Pulse Oximeter Pulse Oximetry (%) 98 Oxygen Delivery Method Room Air Intake Visit Reasons: 6 month fu Allergies No Known Allergies [No Known Allergies*] Allergy (Verified 03/11/24 09:51) Medication List - Last Reconciled 03/11/24 by Amparo Rivera MD ascorbic acid (vitamin C) 1 g PO Q6H ciclopirox 8% 1 appl topical BEDTIME 4 weeks mv,Ca,min-folic acid-vit K1 400-20 mcg (One-A-Day Women's 50 Plus) 1 tab PO DAILY naproxen sodium (Aleve) 220 mg PO Q12H PRN valacyclovir 1,000 mg PO BID Tobacco use date assessed: 03/11/24 Fall risk assessment: 1 Fall in past year Last assessed Fall Risk: 03/11/24 Dental Screening Dental Screen Date: 03/11/24 Did you have a dental visit in the last 12 months?: Yes Did you have a dental problem in the last 6 months where you did not have access to dental care?: No Was dental information given to patient?: Patient has dentist HPI 6 month fu HPI Details Pt presents for hyperlipid, diet contolled. She complains of chronic lower back pain radiating to left lower extremity on and off worse after standing or sitting for long time. Patient has not been physically active but is planning to start exercising. She had physical therapy in the past and was evaluated by neurosurgeon and was not a surgical candidate. Patient has been trying to lose weight. 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 How often do you have a drink containing alcohol?: Monthly or less 2. How many drinks containing alcohol do you have on a typical day when you are drinking?: 1 or 2 3. How often do you have six or more drinks on one occasion?: Never Total Score: 1 Score Reviewed/Action Taken: Yes HAZEL-7 AMB Questionnaire HAZEL-7 Date HAZEL - 7 assessed: 09/04/23 Source: Developed by Drs. Car Emmanuel, Debbie Mcadams, Darshan Brown and colleagues, with an educational issa from [employer]. Review of Systems Const All systems reviewed & are unremarkable except as noted in HPI and below Reports no additional complaints Eyes Reports no additional complaints ENT Reports no additional complaints Card Reports no additional complaints Resp Reports no additional complaints GI Reports no additional complaints Reports no additional complaints Physical exam (Primary Care) Vital Signs: Last Vital Signs Pulse 94 03/11/24 09:49 BP 128/84 03/11/24 09:49 Pulse Ox 98 03/11/24 09:49 Oxygen Delivery Method Room Air 03/11/24 09:49 BMI result Body Mass Index 39.7 Tobacco/Smoking Status: Tobacco use Status Tobacco use date assessed 03/11/24 03/11/24 09:52 Patient Tobacco Use Status Never used Tobacco 03/11/24 09:52 e-Cigarette/Vaping Use Never Used 03/11/24 09:52 Thrive Assessment: Date of Thrive Assessment Date Thrive assessed 09/04/23 03/11/24 09:52 Const General: no acute distress HENMT Face and sinus: Yes normal facial exam Eyes General: appearance normal, both eyes and all related structures Neck Neck: Yes no lymphadenopathy and Yes supple Resp Effort & Inspection: normal respiratory effort Auscultation: clear to auscultation bilaterally Cardio Rhythm: regular rhythm Heart sounds: S1 normal heart sound present and S2 normal heart sound present GI Inspection: Yes normal to inspection Palpation (GI): Soft to palpation Percussion: Yes normal to percussion Assessment and Plan Assessment & Plan (1) Annual physical exam: Code(s): Z00.00 - Encounter for general adult medical examination without abnormal findings (2) Hyperlipidemia: Code(s): E78.5 - Hyperlipidemia, unspecified Plan: Continue low-cholesterol diet regular physical activity and weight loss (3) Vitamin D deficiency: Code(s): E55.9 - Vitamin D deficiency, unspecified Plan: Continue vitamin-D supplement (4) Osteoporosis: Comment: DEXA 10/2020 , T score -2.7 spine, declined med 08/2021, 11/04 AP spine -2.3, femur neck -2.7, unchanged Code(s): M81.0 - Age-related osteoporosis without current pathological fracture Plan: Continue vitamin-D and regular exercise Orders: Orders Complete Blood Count Auto Diff 6 Months E55.9 - Vitamin D deficiency, unspecified, E78.5 - Hyperlipidemia, unspecified, Z00.00 - Encounter for general adult medical examination without abnormal findings Lipid Panel 6 Months E55.9 - Vitamin D deficiency, unspecified, E78.5 - Hyperlipidemia, unspecified, Z00.00 - Encounter for general adult medical examination without abnormal findings Comprehensive [place]. Panel Fast 6 Months E55.9 - Vitamin D deficiency, unspecified, E78.5 - Hyperlipidemia, unspecified, Z00.00 - Encounter for general adult medical examination without abnormal findings TSH reflex Free T4 6 Months E55.9 - Vitamin D deficiency, unspecified, E78.5 - Hyperlipidemia, unspecified, Z00.00 - Encounter for general adult medical examination without abnormal findings Vitamin D 25-OH Total 6 Months E55.9 - Vitamin D deficiency, unspecified, E78.5 - Hyperlipidemia, unspecified, Z00.00 - Encounter for general adult medical examination without abnormal findings Medications: New ciclopirox 8% 1 appl topical BEDTIME 4 weeks 6.6 mL 3RF Refilled valacyclovir 1,000 mg PO BID 60 tabs 1RF Coding Level of Care Code Est Pt Level 4 (57139) Diagnoses Annual physical exam Z00.00 Hyperlipidemia E78.5 Vitamin D deficiency E55.9 Osteoporosis M81.0
== END 2024-03-11 11:00 | disposition home or self-care (01) ==
PROVIDERS: PCP Internal Medicine; Visit Provider Internal Medicine
DX: E78.5 Hyperlipidemia, unspecified (principal); E55.9 Vitamin D deficiency, unspecified; M81.0 Age-related osteoporosis without current pathological fracture
CPT/HCPCS: 99214

== ENCOUNTER 2024-09-25 08:43 | Outpatient (REF) | payer OTHER, SELFPAY ==
[2024-09-25 10:42] LABS: MANUAL DIFF FLAG NO
[2024-09-25 10:49] LABS: Basophils Percent Auto 0.5 % (0-2); Eosinophils Absolute Auto 0.2 X10*3/uL (0.0-0.4); Eosinophils Percent Auto 2.2 % (0-4); Hematocrit 43.7 % (37.0-47.0); Hemoglobin 14.7 g/dl (12.0-16.0); Imm Gran Abs Auto 0.01 X10*3/uL (0.00-0.03); Imm Gran Pct Auto 0.1 % (0.0-0.4); Lymphocytes Absolute Auto 2.1 X10*3/uL (1.2-4.9); Lymphocytes Percent Auto 23.2 % (20-40); Mean Corpuscular HGB Conc 33.6 g/dl (31.0-35.0); Mean Corpuscular Hemoglobin 31.2 pg (27.0-33.0); Mean Corpuscular Volume 92.8 fL (80.0-98.0); Mean Platelet Volume 10.1 fL (9.4-12.3); Monocytes Absolute Auto 0.6 X10*3/uL (0.1-1.2); Monocytes Percent Auto 6.6 % (2-11); Neutrophils Percent Auto 67.4 % (45-73); Platelet Count 317 X10*3/uL (160-400); Red Blood Count 4.71 X10*6/uL (4.20-5.50); Red Cell Distribution Width 12.8 % (11.0-16.0); White Blood Count 8.8 X10*3/uL (4.8-10.8)
[2024-09-25 11:17] LABS: Alanine Aminotransferase 28 U/L (0-31); Albumin Level 4.1 g/dL (3.5-5.0); Alkaline Phosphatase 111 U/L (39-117); Anion Gap 11 (12-20); Aspartate Amino Transferase 24 U/L (5-31); Bilirubin Total 0.7 mg/dL (0.0-1.0); Blood Urea Nitrogen 21 mg/dL (9-16); Calcium 9.9 mg/dL (8.4-10.2); Carbon Dioxide 28 mmol/L (22-29); Chloride 107 mmol/L (96-108); Cholesterol 234 mg/dL (<200); Estimated Glomerular Filt Rate > 60; Glucose Fasting 93 mg/dL (60-99); HDL Cholesterol 77 mg/dL (>40); LDL Cholesterol Calculated 142 mg/dL (<100); Potassium 4.2 mmol/L (3.3-5.1); Sodium 142 mmol/L (135-145); Total Protein 6.8 g/dL (6.5-8.0); Triglycerides 79 mg/dL (<150)
[2024-09-25 11:19] LABS: TSH reflex Free T4 1.38 uIU/mL (0.32-4.0)
== END 2024-09-25 08:44 | disposition home or self-care (01) ==
LOC: HO.HMGCLDS 08:43
PROVIDERS: PCP Internal Medicine; Visit Provider Internal Medicine
DX: Z00.00 Encounter for general adult medical examination without abnormal findings (principal); E55.9 Vitamin D deficiency, unspecified; E78.5 Hyperlipidemia, unspecified
CPT/HCPCS: 36415; 80053; 80061; 82306; 84443; 85025

== ENCOUNTER 2024-09-30 08:20 | Outpatient (AMB) | payer OTHER, SELFPAY ==
[2024-09-30 08:24] VITALS: BP 124/84; PULSE 81; O2SAT 97; BMI 38.3
--- NOTE | 2024-09-30 08:24 | MHC.PC.OV ---
Vital Signs 09/30/24 08:24 Height 5 ft 4 in Weight 223 lb BMI 38.3 BP 124/84 Blood Pressure Location Lt brachial Position Sitting Pulse 81 Pulse Source Pulse Oximeter Pulse Oximetry (%) 97 Oxygen Delivery Method Room Air Intake Visit Reasons: Annual PE Intake Note: Pt is here today for PE. Pt states that she has been having pain and swelling in her R ankle for couple weeks now. Allergies No Known Allergies [No Known Allergies*] Allergy (Verified 09/30/24 08:33) Medication List - Last Reconciled 09/30/24 by Amparo Rivera MD ascorbic acid (vitamin C) 1 g PO Q6H ciclopirox 8% 1 appl topical BEDTIME 4 weeks mv,Ca,min-folic acid-vit K1 400-20 mcg (One-A-Day Women's 50 Plus) 1 tab PO DAILY naproxen sodium (Aleve) 220 mg PO Q12H PRN valacyclovir 1,000 mg PO BID Tobacco use date assessed: 09/30/24 Fall risk assessment: 1 Fall in past year Last assessed Fall Risk: 09/30/24 Dental Screening Dental Screen Date: 03/11/24 HPI Annual PE HPI Details Pt presesnts for PE. Pt c/o R ankle pain and swelling for 2 weeks worse when walking but also at rest. She denies any trauma. [facility] Medical History (Updated 09/30/24 @ 12:45 by Amparo Rivera MD) Vitamin D deficiency Osteoporosis Overweight Normal Pap smear Hyperlipidemia History of mammogram Endometriosis Low back pain Annual physical exam Surgical History (Updated 09/30/24 @ 08:52 by Amparo Rivera MD) H/O colonoscopy No pertinent past surgical history Family History Father Diabetes mellitus Stomach cancer Mother Diabetes mellitus Alzheimer's disease Breast cancer Social History Housing: House Patient Tobacco Use Status: Never used Tobacco e-Cigarette/Vaping Use: Never Used service: No Current occupational status: employed 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 1. Little interest or pleasure in doing things: several days 2. Feeling down, depressed, or hopeless: several days 3. Trouble falling or staying asleep, or sleeping too much: not at all 4. Feeling tired or having little energy: several days 5. Poor appetite or overeating: several days 6. Feeling bad about yourself - or that you are a failure or have let yourself or your family down: not at all 7. Trouble concentrating on things, such as reading the newspaper or watching television: not at all 8. Moving or speaking so slowly that other people could have noticed. Or the opposite - being so fidgety or restless that you have been moving around a lot more than usual: not at all 9. Thoughts that you would be better off or of hurting yourself in some way: not at all Total score: 4 Depression Screening Interpretation: Negative Depression Screening Done: Yes 52143 - PHQ-9 Billing: Yes Source: Developed by Drs. Car Emmanuel, Debbie Mcadams, Darshan Brown and colleagues, with an educational issa from [employer]. Thrive Questionnaire Date Thrive assessed: 09/30/24 I am a: Patient What is your living situation today?: I choose not to answer this question Within the past 12 months, did the food you bought not last and you didn't have the money to get more?: I choose not to answer this question Within the past 12 months, did you worry whether your food would run out before you got money to buy more?: I choose not to answer this question Do you have trouble paying for medicines?: I choose not to answer this question Do you have trouble getting transportation to medical appointments?: I choose not to answer this question Do you have trouble paying your heating and electricity bill?: I choose not to answer this question Do you have trouble taking care of your child, family member or friend?: I choose not to answer this question Do you have trouble with day-to-day activities such as bathing, preparing meals, shopping, managing finances, etc.?: I choose not to answer this question Are you currently unemployed and looking for a job?: I choose not to answer this question Are you interested in more education?: I choose not to answer this question Please select the resources that you would like help with: None Currently or been in a relationship where the following occur: I choose not to answer THRIVE Score: 0 AUDIT C Alcohol Use Questionnaire (AUDIT-C) 1. How often do you have a drink containing alcohol?: Monthly or less 2. How many drinks containing alcohol do you have on a typical day when you are drinking?: 1 or 2 3. How often do you have six or more drinks on one occasion?: Less than monthly Total Score: 2 HAZEL-7 AMB Questionnaire HAZEL-7 Date HAZEL - 7 assessed: 09/30/24 Feeling nervous, anxious, or on edge: 1 = Several days Not being able to stop or control worryin = Several days Worrying too much about different things: 0 = Not at all Trouble relaxin = Not at all Becoming easily annoyed or irritable: 0 = Not at all Feeling afraid as if something awful might happen: 0 = Not at all Source: Developed by Drs. Car Emmanuel, Debbie Mcadams, Darshan Brown and colleagues, with an educational issa from [employer]. HAZEL-7 Assessment Billing HAZEL-7 Assessment Tool: HAZEL-7 Assessment 90724 Review of Systems Const All systems reviewed & are unremarkable except as noted in HPI and below Eyes Reports no additional complaints ENT Reports no additional complaints Card Reports no additional complaints Resp Reports no additional complaints GI Reports no additional complaints Reports no additional complaints Physical exam (Primary Care) Vital Signs: Last Vital Signs Pulse 81 09/30/24 08:24 BP 124/84 09/30/24 08:24 Pulse Ox 97 09/30/24 08:24 Oxygen Delivery Method Room Air 09/30/24 08:24 BMI result Body Mass Index 38.3 Tobacco/Smoking Status: Tobacco use Status Tobacco use date assessed 09/30/24 09/30/24 08:38 Patient Tobacco Use Status Never used Tobacco 09/30/24 08:24 e-Cigarette/Vaping Use Never Used 09/30/24 08:24 PHQ-9: PHQ-9 Score PHQ-9: Total score 4 09/30/24 08:44 Depression Screening Interpretation: Negative Thrive Assessment: Date of Thrive Assessment Date Thrive assessed 09/30/24 09/30/24 08:38 Currently or been in a relationship where the following occur: I choose not to answer Const General: no acute distress HENMT Head: Yes normal to inspection Ears: hearing grossly normal bilaterally Face and sinus: Yes normal facial exam Eyes General: appearance normal, both eyes and all related structures Resp Effort & Inspection: normal respiratory effort Auscultation: clear to auscultation bilaterally Cardio Rhythm: regular rhythm Heart sounds: S1 normal heart sound present and S2 normal heart sound present GI Inspection: Yes normal to inspection Palpation (GI): Soft to palpation Percussion: Yes normal to percussion Auscultation: normal bowel sounds Extrem Other: The slight tenderness to palpation in the right lateral ankle there is slightly decreased range of motion General: Yes no clubbing, cyanosis or edema Coding Level of Care Code Est Pt Prev Care 40-64y(37507) Diagnoses Ankle pain, right M25.571 Osteoporosis M81.0 Overweight E66.3 Hyperlipidemia E78.5 Annual physical exam Z00.00 Additional Codes HAZEL-7 Assessment Billing - HAZEL-7 Assessment Tool: HAZEL-7 Assessment 64499 ([id number]) PHQ-9 - 34142 - PHQ-9 Billing: Yes ([id number]) Assessment & Plan Assessment & Plan (1) Ankle pain, right: Code(s): M25.571 - Pain in right ankle and joints of right foot Category: Medical Plan: Obtain x-ray and referred to physical therapy (2) Osteoporosis: Comment: DEXA 10/2020 , T score -2.7 spine, declined med 08/2021, 11/04 AP spine -2.3, femur neck -2.7, unchanged Code(s): M81.0 - Age-related osteoporosis without current pathological fracture Category: Medical Plan: D supplement and weight-bearing exercises. (3) Overweight: Code(s): E66.3 - Overweight Category: Medical Plan: Increasing physical activity decreasing caloric intake weight loss discussed with the patient (4) Hyperlipidemia: Code(s): E78.5 - Hyperlipidemia, unspecified Category: Medical Plan: Continue low-cholesterol diet (5) Annual physical exam: Code(s): Z00.00 - Encounter for general adult medical examination without abnormal findings Category: Medical Plan: Well-balanced diet regular physical activity weight loss discussed with the patient. She is up-to-date with the mammogram colonoscopy. Patient will return for physical in 1 year with a fasting labs before Orders: Orders Lipid Panel 1 Year E55.9 - Vitamin D deficiency, unspecified, E78.5 - Hyperlipidemia, unspecified, Z00.00 - Encounter for general adult medical examination without abnormal findings MM screening mammo BI Today Z12.31 - Encounter for screening mammogram for malignant neoplasm of breast PT Evaluation and Treatment Today M25.571 - Pain in right ankle and joints of right foot Comprehensive [place]. Panel Fast 1 Year E55.9 - Vitamin D deficiency, unspecified, E78.5 - Hyperlipidemia, unspecified, Z00.00 - Encounter for general adult medical examination without abnormal findings Complete Blood Count Auto Diff 1 Year E55.9 - Vitamin D deficiency, unspecified, E78.5 - Hyperlipidemia, unspecified, Z00.00 - Encounter for general adult medical examination without abnormal findings Vitamin D 25-OH Total 1 Year E55.9 - Vitamin D deficiency, unspecified, E78.5 - Hyperlipidemia, unspecified, Z00.00 - Encounter for general adult medical examination without abnormal findings TSH reflex Free T4 1 Year E55.9 - Vitamin D deficiency, unspecified, E78.5 - Hyperlipidemia, unspecified, Z00.00 - Encounter for general adult medical examination without abnormal findings Medications: Refilled valacyclovir 1,000 mg PO BID 60 tabs 1RF
== END 2024-09-30 12:47 | disposition home or self-care (01) ==
PROVIDERS: PCP Internal Medicine; Visit Provider Internal Medicine
DX: M25.571 Pain in right ankle and joints of right foot (principal); M81.0 Age-related osteoporosis without current pathological fracture; E66.3 Overweight; E78.5 Hyperlipidemia, unspecified; Z00.00 Encounter for general adult medical examination without abnormal findings

== ENCOUNTER 2024-09-30 08:20 | Outpatient (REF) | payer OTHER, SELFPAY ==
--- NOTE | ~2024-09-30 | XR_ITS ---
EXAMINATION: XR ANKLE RIGHT CLINICAL INFORMATION: Pain in right ankle and joints of right foot M25.571. COMPARISON: XR Right foot 01/31/2006 (report only). TECHNIQUE: AP, lateral, and mortise views of the right ankle. FINDINGS: No fracture. Alignment is anatomic. No erosions. Joint spaces are maintained. Soft tissues are normal. Small inferior calcaneal spur. XR/XR ankle RT min 3V IMPRESSION: 1. Small inferior calcaneal spur. 2. No fracture or dislocation. Electronically signed by: Mushtaq Gardner MD 11/13/2024 09:10 PM PHU
== END 2024-09-30 08:21 | disposition home or self-care (01) ==
LOC: HO.HMGCX 08:20
PROVIDERS: PCP Internal Medicine; Visit Provider Internal Medicine
DX: Z00.01 Encounter for general adult medical examination with abnormal findings (principal); M25.571 Pain in right ankle and joints of right foot; M81.0 Age-related osteoporosis without current pathological fracture; E66.3 Overweight; Z68.38 Body mass index [BMI] 38.0-38.9, adult; E78.5 Hyperlipidemia, unspecified
CPT/HCPCS: 73610; 96127; 99396

== ENCOUNTER 2024-12-06 11:00 | Outpatient (RCR) | payer OTHER, SELFPAY ==
--- NOTE | 2024-10-22 11:50 | MHC.PT.EP ---
[facility] [place] Office [place] Office [place] Office [address] Steve Louis [address] [phone] F: [phone] F: [phone] F: [phone] F: [phone] Physical Therapy Plan of Care Date of Evaluation: 10/22/24 Date of Surgery: n/a Diagnosis: pain in R ankle and joints of R foot Assessment: Patient is a 63 year old female presenting to PT with complaints of pain in her R ankle and foot. Pt reports onset of pain began about 2 months ago due to insidious onset. She presents today with impairments in pain, ROM, strength, swelling, gait mechanics. 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 Pt expresses senior care goal of reducing pain, and is motivated to work towards this in PT. Clinical presentation today is most consistent with signs and sx associated with R foot and ankle pain and pt will benefit from skilled PT 2 week x 4 weeks to address the following problems and impairments noted upon evaluation: pain, ROM, strength, swelling, gait mechanics. These problems limit the patient with the following functional activities: ambulating, stair negotiation, ADLs, work. The prescribed treatment plan of care is medically necessary. Co-morbidities of osteoporosis were identified and taken into considerations of plan of care. Pt was educated on HEP, role of PT, prognosis, POC. Frequency and Duration: The patient will be seen 2 x week x 4 weeks Short Term Goals: Pt will demonstrate ROM in available range without pain in 2 weeks. Pt will demonstrate 5/5 ankle MMT strength on R in 2 weeks. [employer] Goals: Pt will demonstrate improved LEFI score by 9 points in 4 weeks for improved functional mobility. Pt will demonstrate ability to ambulate with min to no pain or antalgia in 4 weeks for improved access to the community. Pt will demonstrate ability to negotiate stairs with min to no pain in 4 weeks for return to PLOF. Treatment Plan: Modalities to reduce pain, spasms and effusion. Manual therapy to restore motion and function. Therapeutic exercise to improve strength and flexibility. Neuromuscular re-education for posture and balance. Therapeutic activities to return to functional activities of daily living. Electronically signed by: Jody Colon, PT, DPT, ATC Please sign and return to therapist. Thank you for your referral.
--- NOTE | 2024-12-06 12:17 | MHC.PT.DC ---
[facility] [place] Office [place] Office [place] Office [address] [phone] F: [phone] F: [phone] F: [phone] F: [phone] Physical Therapy Discharge Report Diagnosis: pain in R ankle and joints of R foot Date of Surgery: n/a Date of Evaluation: 10/22/24 Date of Discharge: 12/06/24 Treatments to Date: 8 Cancellations to Date: 0 No Shows to Date: 0 Discharge Status: Independent with HEP Recommend MD Follow-up Discharge Summary: 12/06/2024: She has made some improvements since start of care but she is still having pain and limitations with her walking and function. Pain at times is sharp and burning. At this time max benefits of PT have been provided and skilled PT is no longer indicated. She was recently given a referral to a med care manager and I think this is an appropriate next step. She is also thinking about seeing an orthopedic which I think is also reasonable. She knows to continue with her exercises at home while she is waiting for these appointments. She is in agreement with plan/ d/c today. Electronically signed by: Jody Colon, PT, DPT, ATC Please sign and return to therapist. Thank you for your referral.
== END 2024-12-06 12:17 | disposition home or self-care (01) ==
LOC: HO.PTCHIC 11:00
PROVIDERS: PCP Internal Medicine; Visit Provider Internal Medicine
DX: M25.571 Pain in right ankle and joints of right foot (principal)
CPT/HCPCS: 97110; 97140; 97161

== ENCOUNTER 2025-09-30 08:26 | Outpatient (REF) | payer MEDICARE, MEDICAID, SELFPAY ==
[2025-09-30 10:33] LABS: MANUAL DIFF FLAG NO
[2025-09-30 11:13] LABS: Hematocrit 44.9 % (37.0-47.0); Hemoglobin 14.6 g/dl (12.0-16.0); Imm Gran Abs Auto 0.01 X10*3/uL (0.00-0.03); Imm Gran Pct Auto 0.2 % (0.0-0.4); Lymphocytes Absolute Auto 1.9 X10*3/uL (1.2-4.9); Mean Corpuscular HGB Conc 32.5 g/dl (31.0-35.0); Mean Corpuscular Hemoglobin 30.4 pg (27.0-33.0); Mean Corpuscular Volume 93.3 fL (80.0-98.0); NRBC Abs Auto 0.000 X10*3/uL (0.0-0.012); NRBC Pct Auto 0.0 /100WBC (0.0-0.2); Platelet Count 311 X10*3/uL (160-400); Red Blood Count 4.81 X10*6/uL (4.20-5.50); White Blood Count 5.9 X10*3/uL (4.8-10.8)
[2025-09-30 11:31] LABS: Alanine Aminotransferase 33 U/L (0-31); Albumin Level 4.1 g/dL (3.5-5.0); Alkaline Phosphatase 110 U/L (39-117); Anion Gap 12 (12-20); Aspartate Amino Transferase 26 U/L (5-31); Blood Urea Nitrogen 19 mg/dL (9-16); Calcium 9.5 mg/dL (8.4-10.2); Carbon Dioxide 27 mmol/L (22-29); Chloride 108 mmol/L (96-108); Cholesterol 224 mg/dL (<200); Estimated Glomerular Filt Rate > 60; HDL Cholesterol 73 mg/dL (>40); Potassium 4.5 mmol/L (3.3-5.1); Sodium 142 mmol/L (135-145); Total Protein 6.6 g/dL (6.5-8.0); Triglycerides 81 mg/dL (<150)
== END 2025-09-30 08:27 | disposition home or self-care (01) ==
LOC: HO.HMGCLDS 08:26
PROVIDERS: PCP Internal Medicine; Visit Provider Internal Medicine
DX: Z00.00 Encounter for general adult medical examination without abnormal findings (principal); Z13.21 Encounter for screening for nutritional disorder; Z13.29 Encounter for screening for other suspected endocrine disorder; E78.5 Hyperlipidemia, unspecified; E55.9 Vitamin D deficiency, unspecified
CPT/HCPCS: 36415; 80053; 80061; 82306; 84443; 85025

== ENCOUNTER 2025-10-13 12:32 | Outpatient (REF) | payer MEDICARE, MEDICAID, SELFPAY ==
[2025-10-13 16:15] LABS: Appearance Urine Clear; Glucose Urine UA Negative (Negative); PH 7.5 (5.0-9.0); Specific Gravity - Urine 1.025 (1.005-1.025)
== END 2025-10-13 12:33 | disposition home or self-care (01) ==
LOC: HO.HMGCLDS 12:32
PROVIDERS: PCP Internal Medicine; Visit Provider Internal Medicine
DX: Z00.00 Encounter for general adult medical examination without abnormal findings (principal); E78.5 Hyperlipidemia, unspecified; M81.0 Age-related osteoporosis without current pathological fracture; E55.9 Vitamin D deficiency, unspecified; M47.816 Spondylosis without myelopathy or radiculopathy, lumbar region; Z13.31 Encounter for screening for depression; Z13.39 Encounter for screening examination for other mental health and behavioral disorders; M79.605 Pain in left leg; M79.604 Pain in right leg; G89.29 Other chronic pain
CPT/HCPCS: 81001; 96127; 99397

== ENCOUNTER 2025-10-13 12:32 | Outpatient (AMB) | payer MEDICARE, MEDICAID, SELFPAY ==
[2025-10-13 12:36] VITALS: BP 136/80; PULSE 96; RESP 17; TEMP 36.8; O2SAT 98; BMI 38.8
--- NOTE | 2025-10-13 12:36 | A.OFFPC_ITS ---
Vital Signs 10/13/25 12:36 Height 5 ft 4 in Weight 226 lb BMI 38.8 BP 136/80 Blood Pressure Location Lt brachial Position Sitting Respiration 17 Pulse 96 Pulse Source Pulse Oximeter Temp 98.2 F Temp Source Oral Pulse Oximetry (%) 98 Oxygen Delivery Method Room Air Intake Visit Reasons: follow up/back concerns Allergies No Known Allergies (No Known Allergies*) Allergy (Verified 10/13/25 12:57) Medication List - Last Reconciled 10/13/25 by Amparo Rivera MD ascorbic acid (vitamin C) 1 g PO Q6H gabapentin 300 mg PO BID meloxicam 15 mg PO DAILY mv,Ca,min-folic acid-vit K1 400-20 mcg (One-A-Day Women's 50 Plus) 1 tab PO DAILY valacyclovir 1,000 mg PO BID Tobacco use date assessed: 10/13/25 Fall risk assessment: No Falls in past year Last assessed Fall Risk: 10/13/25 Dental Screening Dental Screen Date: 10/13/25 Did you have a dental visit in the last 12 months?: Yes Did you have a dental problem in the last 6 months where you did not have access to dental care?: No Was dental information given to patient?: Patient has dentist HPI HPI Comments History of Present Illness Details Pt presents for PE. Pt c/o chronic bilateral posterior legs pain worsened with walking. She denies any weakness or numbness in extremities, change in bladder or bowel function, lower back pain. MRI of lumbar spine ordered by orthopedic surgeon showed disc herniations mainly at L3-L4 and L4-L5 and mild to moderate foraminal stenosis at L5 region bilaterally. Patient was referred to [facility] for cortisone injection. She has been seeing PA who has prescribed gabapentin but patient is interested in getting cortisone injection. She completed physical therapy but has not been doing home exercises daily. [facility] Medical History (Updated 10/13/25 @ 16:02 by Amparo Rivera MD) Vitamin D deficiency Osteoporosis Overweight Normal Pap smear Hyperlipidemia History of mammogram Endometriosis Low back pain Annual physical exam Surgical History (Updated 10/13/25 @ 13:38 by Amparo Rivera MD) H/O colonoscopy No pertinent past surgical history Family History Father Diabetes mellitus Stomach cancer Mother Diabetes mellitus Alzheimer's disease Breast cancer Social History Housing: House Patient Tobacco Use Status: Never used Tobacco e-Cigarette/Vaping Use: Never Used service: No Current occupational status: employed 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 1. Little interest or pleasure in doing things: several days 2. Feeling down, depressed, or hopeless: several days 3. Trouble falling or staying asleep, or sleeping too much: not at all 4. Feeling tired or having little energy: several days 5. Poor appetite or overeating: several days 6. Feeling bad about yourself - or that you are a failure or have let yourself or your family down: not at all 7. Trouble concentrating on things, such as reading the newspaper or watching television: not at all 8. Moving or speaking so slowly that other people could have noticed. Or the opposite - being so fidgety or restless that you have been moving around a lot more than usual: not at all 9. Thoughts that you would be better off or of hurting yourself in some way: not at all Total score: 4 Depression Screening Interpretation: Negative Depression Screening Done: Yes 85576 - PHQ-9 Billing: Yes Source: Developed by Drs. Car Emmanuel, Debbie Mcadams, Darshan Brown and colleagues, with an educational issa from [employer]. Thrive Questionnaire Date Thrive assessed: 10/13/25 I am a: Patient What is your living situation today?: I choose not to answer this question Within the past 12 months, did the food you bought not last and you didn't have the money to get more?: I choose not to answer this question Within the past 12 months, did you worry whether your food would run out before you got money to buy more?: I choose not to answer this question Do you have trouble paying for medicines?: I choose not to answer this question Do you have trouble getting transportation to medical appointments?: I choose not to answer this question Do you have trouble paying your heating and electricity bill?: I choose not to answer this question Do you have trouble taking care of your child, family member or friend?: I choose not to answer this question Do you have trouble with day-to-day activities such as bathing, preparing meals, shopping, managing finances, etc.?: I choose not to answer this question Are you currently unemployed and looking for a job?: I choose not to answer this question Are you interested in more education?: I choose not to answer this question Please select the resources that you would like help with: None Currently or been in a relationship where the following occur: I choose not to answer THRIVE Score: 0 AUDIT C Alcohol Use Questionnaire (AUDIT-C) 1. How often do you have a drink containing alcohol?: Monthly or less 2. How many drinks containing alcohol do you have on a typical day when you are drinking?: 1 or 2 3. How often do you have six or more drinks on one occasion?: Less than monthly Total Score: 2 HAZEL-7 AMB Questionnaire HAZEL-7 Date HAZEL - 7 assessed: 10/13/25 Feeling nervous, anxious, or on edge: 1 = Several days Not being able to stop or control worryin = Several days Worrying too much about different things: 0 = Not at all Trouble relaxin = Not at all Becoming easily annoyed or irritable: 0 = Not at all Feeling afraid as if something awful might happen: 0 = Not at all Source: Developed by Drs. Car Emmanuel, Debbie Mcadams, Darshan Brown and colleagues, with an educational issa from [employer]. HAZEL-7 Assessment Billing HAZEL-7 Assessment Tool: HAZEL-7 Assessment 70135 Review of Systems Const All systems reviewed & are unremarkable except as noted in HPI and below Eyes Reports no additional complaints ENT Reports no additional complaints Card Reports no additional complaints Resp Reports no additional complaints GI Reports no additional complaints Reports no additional complaints Musc Reports no additional complaints Neuro Reports no additional complaints Physical exam (Primary Care) Vital Signs: Last Vital Signs Temp 98.2 F 10/13/25 12:36 Pulse 96 10/13/25 12:36 Resp 17 10/13/25 12:36 BP 136/80 10/13/25 12:36 Pulse Ox 98 10/13/25 12:36 Oxygen Delivery Method Room Air 10/13/25 12:36 BMI result Body Mass Index 38.8 Tobacco/Smoking Status: Tobacco use Status Tobacco use date assessed 10/13/25 10/13/25 13:01 Patient Tobacco Use Status Never used Tobacco 10/13/25 13:01 e-Cigarette/Vaping Use Never Used 10/13/25 12:36 PHQ-9: PHQ-9 Score PHQ-9: Total score 4 10/13/25 13:15 Depression Screening Interpretation: Negative Thrive Assessment: Date of Thrive Assessment Date Thrive assessed 10/13/25 10/13/25 13:11 Currently or been in a relationship where the following occur: I choose not to answer Const General: no acute distress HENMT Head: Yes normal to inspection Ears: TM's normal bilaterally Face and sinus: Yes normal facial exam Throat: Yes posterior oropharynx normal Eyes General: appearance normal, both eyes and all related structures Neck Neck: Yes no lymphadenopathy and Yes supple Resp Effort & Inspection: normal respiratory effort Auscultation: clear to auscultation bilaterally Cardio Rhythm: regular rhythm Heart sounds: S1 normal heart sound present and S2 normal heart sound present GI Inspection: Yes normal to inspection Palpation (GI): Soft to palpation Percussion: Yes normal to percussion Auscultation: normal bowel sounds Back/Spine/Pelvis Other: Straight leg rising 90 degrees bilaterally, deep tendon reflexes 2+ bilaterally Thoracic/Lumbar Spine: thoracic and lumbar spine normal to inspection Pelvis: no pain with anterior-posterior compression Coding Level of Care Code Est Pt Prev Care >65y(46295) Diagnoses Hyperlipidemia E78.5 Osteoporosis M81.0 Vitamin D deficiency E55.9 Annual physical exam Z00.00 Degenerative joint disease (DJD) of lumbar spine M47.816 Additional Codes HAZEL-7 Assessment Billing - HAZEL-7 Assessment Tool: HAZEL-7 Assessment 94157 ([id number]) PHQ-9 - 53059 - PHQ-9 Billing: Yes ([id number]) Assessment & Plan Assessment & Plan (1) Hyperlipidemia: Code(s): E78.5 - Hyperlipidemia, unspecified Category: Medical Plan: cont low cholesterol diet (2) Osteoporosis: Comment: DEXA 10/2020 , T score -2.7 spine, declined med 08/2021, 11/04 AP spine -2.3, femur neck -2.7, unchanged Code(s): M81.0 - Age-related osteoporosis without current pathological fracture Category: Medical Plan: Continue vitamin D3 and weight-bearing exercises check repeat DEXA (3) Vitamin D deficiency: Code(s): E55.9 - Vitamin D deficiency, unspecified Category: Medical Plan: Continue vitamin-D supplement (4) Annual physical exam: Code(s): Z00.00 - Encounter for general adult medical examination without abnormal findings Category: Medical Plan: Well-balanced diet regular physical activity discussed with the patient she will schedule mammogram. Patient is up-to-date with colonoscopy. She will return for fasting blood work (5) Degenerative joint disease (DJD) of lumbar spine: Code(s): M47.816 - Spondylosis without myelopathy or radiculopathy, lumbar region Category: Medical Plan: Patient will follow-up with [facility] Orders: Orders UA w Microscopic Today Z00.00 - Encounter for general adult medical examination without abnormal findings XR DEXA axial skeleton Today M81.0 - Age-related osteoporosis without current p athological fracture
--- OUTSIDE RECORDS SUMMARY | 2025-10-13 16:13 | XMS_ITS | Clinical Summary ---
Author Organization [facility] Address [address] [place] [address] Phone Care Team Providers Care Health Information Management Director Name Role Phone Amparo Rivera MD Primary Care Provider [phone] Family History Medical History Relation Name Comments Breast cancer Mother Breast cancer Mother's Sister Breast cancer Sister Relation Name Status Comments Mother Mother's Sister Alive Sister Social History Tobacco Use Types Packs/Day Years Used Date Smoking Tobacco: Never Assessed Comments No Sex and Gender Information Value Date Recorded Sex Assigned at Not on file Legal Sex Female 3:44 PM EST Gender Identity Not on file Sexual Orientation Not on file Obstetrics History Last Filed Vital Signs Vital Sign Reading Time Taken Comments Blood Pressure - - Pulse - - Temperature - - Respiratory Rate - - Oxygen Saturation - - Inhaled Oxygen Concentration - - Weight 81.6 kg (180 lb) 10/21/2024 12:59 PM EST Height 162.6 cm (5' 4 ) 10/21/2024 12:59 PM EST Body Mass Index 30.9 10/21/2024 12:59 PM EST Plan of Treatment Upcoming Encounters Date Type Department Care Team (Late st Contact Info) Description 10/22/2025 1:00 PM EST [facility]ointment [facility] [address] [address] Health Maintenance Due Date Last Done Comments Colorectal Cancer Screening: Colonoscopy 1960 Cervical Cancer Screening: Pap Smear 1980 Pneumococcal Vaccine: 50+ Years (1 of 1 - PCV) 2009 Zoster Vaccines (1 of 2) 2009 Hepatitis C Screening 10/12/2022 Social Influencers of Health Screening 10/12/2022 Depression Screening 11/13/2024 Falls Risk Assessment 2024 COVID-19 Vaccine ( season) 2025 Influenza Vaccine (#1) 2025 Breast Cancer Screening 10/21/2026 10/21/20 24, 10/03/2022, 10/01/2021, Additional history exists Osteoporosis Screening (Bone Density Screening) 10/18/2033 10/18/2023, 09/28/2020 DTaP,Tdap,and Td Vaccines (2 - Td or Tdap) 2033 2023 RSV Immunization Adult Patients (1 - 1-dose 75+ series) 2034 HIB Vaccines Aged Out No longer eligi ble based on patient's age to complete this topic HPV Vaccines Aged Out No longer eligi ble based on patient's age to complete this topic Hepatitis A Vaccines Aged Out No long er eligible based on patient's age to complete this topic Hepatitis B Vaccines Aged Out No long er eligible based on patient's age to complete this topic IPV Vaccines Aged Out No longer eligi ble based on patient's age to complete this topic MMR Vaccines Aged Out No longer eligi ble based on patient's age to complete this topic Meningococcal ACWY Vaccine Aged Out N o longer eligible based on patient's age to complete this topic Meningococcal B Vaccine Aged Out No l onger eligible based on patient's age to complete this topic RSV Immunization Patients Under 20 months Aged Out No longer eligible based on patient's age to complete this topic Varicella Vaccines Aged Out No longer eligible based on patient's age to complete this topic Procedures Procedure Name Priority Date/Time Associated Diagnosis Comments MG MAMMO DIGITAL DIAGNOSTIC W FAISAL BILAT Routine 10/21/2024 1:18 PM EST Mammogram abnormal JIM DEXA AXIAL SKELETON Routine 10/18/2023 6:08 PM EST Encounter for screening for osteoporosis from Last 3 Months or Most Recently Relevant to Health Maintenance Results * MG Mammo Digital Diagnostic w Faisal bilat (10/21/2024 1:18 PM EST) Anatomical Region Laterality Modality Breast Bilateral Mammography 10/21/2024 1:12 PM EST Impressions 10/21/2024 1:20 PM EST No mammographic evidence of malignancy. No suspicious interval change. A negative mammogram in the presence of a clinically suspicious palpable abnormality does not preclude the possibility of malignancy or alter the indications for biopsy. ASSESSMENT: BI-RADS 1: NEGATIVE RECOMMENDATION(S): 1: Routine screening mammogram BILATERAL in 1 year. -------- FINAL REPORT -------- Dictated By: Gallo Goss Dictated Date: 10/21/2024 13:12 ET Assigned Physician: Gallo Goss Reviewed and Electronically Signed By: Gallo Goss Signed Date: 10/21/2024 13:20 ET Workstation ID: [id number] Transcribed By: Self Edit Transcribed Date: 10/21/2024 13:12 ET Narrative 10/21/2024 1:20 PM EST EXAM: DIAGNOSTIC MAMMOGRAPHY, BILATERAL HISTORY: Short interval follow-up. Probably benign asymmetry left breast COMPARISON: 10/18/2023, 04/18/2023, 10/10/2022, 10/03/2022, 10/01/2021, 09/28/2020 TECHNIQUE: Synthesized CC and MLO projections of each breast. Tomosynthesis of each breast in the CC and MLO projections. ADDITIONAL IMAGING: None Computer-aided detection was employed with the [employer] 3-D. TISSUE DENSITY: There are scattered areas of fibroglandular density. (BI-RADS category B) FINDINGS: RIGHT BREAST: No suspicious mass. No suspicious calcification. No distortion. No additional suspicious right breast findings LEFT BREAST: The asymmetry in the 12 o'clock position demonstrated on the previous study is not well reproduced. There is no suspicious left breast mass. There is no suspicious finding remaining in the 12 o'clock position. No additional suspicious left breast findings Procedure Note Gallo Goss MD - 10/21/2024 EXAM: DIAGNOSTIC MAMMOGRAPHY, BILATERAL HISTORY: Short interval follow-up. Probably benign asymmetry left breast COMPARISON: 10/18/2023, 04/18/2023, 10/10/2022, 10/03/2022, 10/01/2021,09/28/2020 TECHNIQUE: Synthesized CC and MLO projections of each breast.Tomosynthesis of each breast in the CC and MLO projections. ADDITIONAL IMAGING: None Computer-aided detection was employed with the [employer] 3-D. TISSUE DENSITY: There are scattered areas of fibroglandular density.(BI-RADS category B) FINDINGS: RIGHT BREAST: No suspicious mass. No suspicious calcification. No distortion. Noadditional suspicious right breast findings LEFT BREAST: The asymmetry in the 12 o'clock position demonstrated on the previousstudy is not well reproduced. There is no suspicious left breast mass.There is no suspicious finding remaining in the 12 o'clock position. Noadditional suspicious left breast findings IMPRESSION: No mammographic evidence of malignancy. No suspicious interval change. A negative mammogram in the presence of a clinically suspicious palpableabnormality does not preclude the possibility of malignancy or alter theindications for biopsy. ASSESSMENT: BI-RADS 1: NEGATIVE RECOMMENDATION(S): 1: Routine screening mammogram BILATERAL in 1 year. -------- FINAL REPORT -------- Dictated By: Gallo Goss Dictated Date: 10/21/2024 13:12 ET Assigned Physician: Gallo Goss Reviewed and Electronically Signed By: Gallo Goss Signed Date: 10/21/2024 13:20 ET Workstation ID: [id number] Transcribed By: Self Edit Transcribed Date: 10/21/2024 13:12 ET us Amparo Rivera MD IMG BI PROCEDURES Final Resul t * JIM DEXA AXIAL SKELETON (10/18/2023 6:08 PM EST) Anatomical Region Laterality Modality Mammography 10/18/2023 1:07 PM EST Narrative 10/18/2023 6:08 PM EST [facility] Diagnostic Imaging Department [address] [place] [id number] Patient: FAWN ADAM D.O.B./Age/Sex: 1960 - 62 - F Unit#: [id number] Location/Status: SPDIMAM/REG CLI Mnemonic/[facility] Ordering Physician: AMPARO RIVERA MD [facility] Dexa Axial Skeleton - 10/18/23 - 0652 Report Status:Signed History: Low estrogen state due to menopause. Personal history of fracture. Parent hip fracture. Comparison: 09/28/20 Findings: Bone densitometry is performed utilizing dual energy x-ray absorptiometry (DXA) in the [employer] unit. The lumbar spine and proximal femora are evaluated in the AP projection. The FRAX questionaire was completed. The results indicate osteoporosis, with a right femoral neck T-score of -2.7. The Z score is -2.1, indicating very low bone mineral density for age. There has been no statistically significant change. The detailed DEXA report will be mailed to the referring physician's office. [employer] FRAX: 10-year Probability of Fracture: Major Osteoporotic 35.4 percent Hip 4.9 percent. IMPRESSION: Osteoporosis. [id number] Dictating Physician: ELIZABETH MARES MD Electronically Signed by: ELIZABETH MARES MD Dic Date/Time: 10/18/231806 Sign date/Time: 10/18/231807 Procedure Note Elizabeth Mares MD - 2023 [facility] Diagnostic Imaging Department [address] [place] [address] Patient: FAWN ADAMO.B./Age/Sex: 1960 - F Unit#: [id number] Location/Status: SPDIMAM/REG CLI Mnemonic/Ordering Site: [facility] Ordering Physician: AMPARO RIVERA MD Jim Dexa Axial Skeleton - 10/18/23 - 1352 Report Status:Signed History: Low estrogen state due to menopause. Personal history offracture. Parent hip fracture. Comparison: 09/28/20 Findings: Bone densitometry is performed utilizing dual energy x-ray absorptiometry(DXA) in the [employer] unit. The lumbar spine and proximal femora areevaluated in the AP projection. The FRAX questionaire was completed. The results indicate osteoporosis, with a right femoral neck T-score of-2.7. The Z score is -2.1, indicating very low bone mineral density for age. There has been no statistically significant change. The detailed DEXAreport will be mailed to the referring physician's office. [employer] FRAX: 10-year Probability of Fracture: Major Osteoporotic 35.4 percent Hip 4.9 percent. IMPRESSION: Osteoporosis. [id number] Dictating Physician: ELIZABETH MARES MD Electronically Signed by: ELIZABETH MARES MD Dic Date/Time: 10/18/231806 Sign date/Time: 10/18/231807 Amparo Rivera MD IMG BI PROCEDURES Final Resul t from Last 3 Months or Most Recently Relevant to Health Maintenance Insurance [facility] Care Teams Health Information Management Director Relationship Specialty Start Date End Date Amparo Rivera MD [address] [place] [phone] PCP - General Internal Medicine 10/21/24
== END 2025-10-13 14:40 | disposition home or self-care (01) ==
LOC: HO.HMCC 12:33
PROVIDERS: PCP Internal Medicine; Visit Provider Internal Medicine
DX: Z00.00 Encounter for general adult medical examination without abnormal findings (principal); E78.5 Hyperlipidemia, unspecified; M81.0 Age-related osteoporosis without current pathological fracture; E55.9 Vitamin D deficiency, unspecified; M47.816 Spondylosis without myelopathy or radiculopathy, lumbar region